=== PATIENT | male | born 1990 | race Caucasian/White ===

== ENCOUNTER 2019-08-12 15:00 | Emergency (ER) | payer SELFPAY ==
[~2019-08-12] VITALS: Ht 177.8 cm; Wt 117.9 kg
[2019-08-12 15:09] VITALS: BP 154/78
--- NOTE | 2019-08-12 15:13 | NUR ---
Patient ambulated to bed 7. RN evaluating patient at bedside.
--- NOTE | 2019-08-12 15:15 | NUR ---
EKG completed at bedside by EMT.
--- NOTE | 2019-08-12 15:30 | NUR ---
C/O NON RADIATING STERNAL CHEST PAIN / AND SHARP X2 DAYS. PT DENIES N/V. SKIN IS WARM & DRY. PT AWAKE AND ANSWERING QUESTIONS APPROPRIATELY. LUNG SOUNDS CAEB, O2 SAT 98% ON RA. NO APPARENT DISTRESS NOTED AT THIS TIME. BED IN LOW POSITION, SIDE RAIL UP X1. PT PLACED ON PICTURE FRAME MAKER AT THIS TIME.
[2019-08-12 16:24] LABS: BASOPHILS # (AUTO) 0.1 K/uL (0.00-0.22); BASOPHILS % (AUTO) 1.1 % (0.0-2.0); EOSINOPHILS # (AUTO) 0.1 K/uL (0-0.4); EOSINOPHILS % (AUTO) 1.9 % (0.0-4.0); HEMATOCRIT 47.7 % (36-52); HEMOGLOBIN 16.2 g/dL (12.0-18.0); LYMPHOCYTES % (AUTO) 27.1 % (20.5-51.1); MEAN CORPUSCULAR HEMOGLOBIN 29 pg (27-31); MEAN CORPUSCULAR HGB CONC 34 g/dL (33-37); MONOCYTES # (AUTO) 0.4 K/uL (0.8-1.0); MONOCYTES % (AUTO) 5.8 % (1.7-9.3); NEUTROPHILS # (AUTO) 4.7 K/uL (1.8-7.7); NEUTROPHILS % (AUTO) 64.1 % (42.2-75.2); PLATELET COUNT (AUTO) 240 K/uL (140-450); RED BLOOD CELL COUNT(AUTO) 5.55 MIL/uL (4.20-6.10); RED CELL DISTRIBUTION WIDTH 12.7 % (11.6-13.7); WHITE BLOOD COUNT (AUTO) 7.4 K/uL (4.8-10.8)
--- NOTE | 2019-08-12 16:43 | NUR ---
PT RESTING IN BED, NO NEW NEEDS AT THIS TIME
[2019-08-12 16:55] LABS: ANION GAP 18.5 (8-16); CARBON DIOXIDE 24.4 mmol/L (21-32); POTASSIUM 3.9 mmol/L (3.5-5.1)
[2019-08-12 17:01] LABS: ALBUMIN 4.6 g/dL (3.4-5.0)
[2019-08-12 17:27] LABS: TOTAL BILIRUBIN 0.7 mg/dL (0.0-1.0)
[2019-08-12] MEDS: ONDANSETRON 4 MG ODT PO ONE (17:32)
[2019-08-12] MEDS: HYDROcodone/APAP 5/325 MG 1 TAB TAB PO ONE (17:32)
--- NOTE | 2019-08-12 17:42 | NUR ---
PT RESTING IN BED, NO NEW NEEDS AT THIS TIME.
[2019-08-12 18:20] VITALS: BP 140/68
--- NOTE | 2019-08-12 18:48 | NUR ---
Patient discharged with v/s stable. Written and verbal after care instructions given and explained. Patient alert, oriented and verbalized understanding of instructions. Ambulatory with steady gait. All questions addressed prior to discharge. ID band removed. Patient advised to follow up with PMD. Rx of norco & aspirin given. Patient educated on indication of medication including possible reaction and side effects. Opportunity to ask questions provided and answered.
== END 2019-08-12 18:48 | disposition home or self-care (01) ==
LOC: MED 15:00
DX: R07.89 Other chest pain (principal); R06.02 Shortness of breath; R20.2 Paresthesia of skin; E11.9 Type 2 diabetes mellitus without complications
CPT/HCPCS: 36415; 71045; 80053; 84484; 85025; 99284; Q0092; Q0162